=== PATIENT | female | born 1980 | race Caucasian/White ===

== ENCOUNTER → 2021-10-22 | Outpatient (CLI) | payer BC ==
[2021-10-22 14:58] LABS: Basophils # (A) 0.03 X 10*3/uL (0.00-0.10); Basophils % (A) 0.4 %; Eosinophils # (A) 0.11 X 10*3/uL (0.04-0.35); Eosinophils % (A) 1.6 %; HCT 39.2 % (37.2-46.3); HGB 12.6 g/dL (12.0-15.0); Immature Grans, Automated 0.6 %; Lymphocytes % (A) 27.9 %; MCH 29.1 pg (27.0-32.0); MCHC 32.1 g/dL (32.0-37.0); MCV 90.5 fL (80.0-97.0); Mean Platelet Volume 9.3 fL (9.5-12.2); Monocytes # (A) 0.38 X 10*3/uL (0.20-1.00); Monocytes % (A) 5.6 %; NRBC Per 100 WBC 0 /100 WBCS (0.0-0.0); Neutrophils # (A) 4.36 X 10*3/uL (1.80-7.70); Neutrophils % (A) 63.9 %; Platelet Count 336 X 10*3/uL (140-440); RBC 4.33 X 10*6/uL (4.10-5.20); RDW 12.2 % (11.5-14.5); WBC 6.82 X 10*3/uL (4.50-10.00)
== END | disposition home or self-care (01) ==
LOC: LABPAT 10-16 08:29
PROVIDERS: ATTEND Obstetrics & Gynecology
DX: Z01.812 Encounter for preprocedural laboratory examination (principal); N93.8 Other specified abnormal uterine and vaginal bleeding
CPT/HCPCS: 85025

== ENCOUNTER 2021-10-26 06:15 | Day surgery (SDC) | payer BC, OTHER ==
--- NOTE | 2021-10-22 11:40 | HP ---
HISTORY AND PHYSICAL REASON FOR ADMISSION: Surgery scheduled on 10/26/2021. HISTORY OF PRESENT ILLNESS: The patient is a 41-year-old 4, para 3, 0, 1, 3, who presents to the office complaining of longstanding irregular spotting and bleeding, which is unpredictable in nature and interruptive of her normal lifestyle. Her partner has a vasectomy and she is not interested in hormonal manipulation. She has specifically requested endometrial ablation as she is not in need of contraception and the pattern of bleeding is interruptive as noted above to her lifestyle. PAST MEDICAL HISTORY: Significant for history of headaches as well as irritable bowel syndrome. She additionally had depression on a single occasion. SURGICAL HISTORY: Significant for a section as well as a history of a laparoscopic cholecystectomy. She has had a colonoscopy on a regular basis, every 2 years, for quite some time. She additionally had a D and C for miscarriage and a right knee arthroscopy. There has been no history of any anesthetic concerns. OBSTETRICAL/SENIOR DEVOPS ENGINEER HISTORY: 4, para 3, 0, 1, 3 with 2 term vaginal deliveries preceded by a miscarriage and then followed by a term section. Method of contraception is vasectomy. Gynecologic history: Unremarkable with no history of any infections to include STDs. FAMILY HISTORY: Noncontributory. SOCIAL HISTORY: The patient is and is a nonsmoker. She has no other social concerns. CURRENT MEDICATIONS: Include Celexa 40 mg daily, magnesium supplement daily, and Prometrium 200 mg at bedtime. ALLERGIES: AMOXICILLIN, WHICH IS POTENTIALLY ANAPHYLACTIC. SHE ADDITIONALLY HAD A REACTION TO COMPAZINE, DHE AND ERYTHROMYCIN CAUSED HIVES. REVIEW OF SYSTEMS: Is confined to history of present illness. PHYSICAL EXAMINATION: Vital signs are stable. The patient is afebrile. In general, this is a well- developed, well-nourished white female in no acute distress. Her heart has a regular rhythm and rate without murmur. Her lungs are clear to auscultation bilaterally in all more. Her abdomen is nondistended, has normoactive bowel sounds, soft, nontender, and without any palpable masses, hepatosplenomegaly, or hernias. Her extremities are without any cyanosis, clubbing, or edema and are nontender to palpation bilaterally. Pelvic examination demonstrates normal external genitalia and BUS with normal vaginal mucosa and cervix. There is no cervical motion tenderness. Uterus is approximately 4- 5 weeks in size, mid plane, mobile, nontender, normal in shape. The adnexa are normal and nontender without mass bilaterally. ASSESSMENT AND PLAN: Dysfunctional uterine bleeding: We have discussed multiple different options and the patient has requested a diagnostic hysteroscopy with NovaSure endometrial ablation. Endometrial biopsy was negative or normal. The risks and complications of the procedure were thoroughly discussed including the risks for bleeding, bleeding requiring transfusion, infection, injury to local structures, to specifically include uterine perforation, Asherman syndrome, or potential hematometra. She has understood all this and has agreed to proceed. We are scheduled for surgery on the morning of October 26, 2021. MMODL / IJN: [id number] /
[~2021-10-26 06:15] MED LIST: Pre Op ABX Message 1 EACH MISC MISCELLANE ONE
[2021-10-26] MEDS ORDERED: DEXAMETHASONE SOD PHOSPHATE 4 MG/ML 1 ML VIAL IV ONE (06:24)
[2021-10-26] MEDS ORDERED: MIDAZOLAM 2 MG/2 ML VIAL IV PRN (06:24)
[2021-10-26] MEDS ORDERED: LACTATED RINGERS 1,000 ML IV SCH ×2 (06:24→08:00)
[2021-10-26] MEDS ORDERED: SCOPOLAMINE 1 MG/72 HR PATCH TRANSDERM ONE (06:24)
[2021-10-26] MEDS ORDERED: ONDANSETRON 4 MG/2 ML VIAL IVP ONE (06:24)
[2021-10-26] MEDS ORDERED: HYDROmorphone 0.5 MG/0.5 ML SYRINGE IVP PRN (07:00)
[2021-10-26] MEDS ORDERED: KETOROLAC 15 MG/ML 1 ML VIAL ONE (07:26)
[2021-10-26] MEDS ORDERED: MIDAZOLAM 2 MG/2 ML VIAL ONE (07:26)
[2021-10-26] MEDS ORDERED: PROPOFOL 10 MG/ML 20 ML VIAL IV ONE (07:26)
[2021-10-26] MEDS ORDERED: LIDOCAINE 2% INJ 20 MG/ML (2 ML VIAL) ONE (07:26)
[2021-10-26] MEDS ORDERED: fentaNYL (PF) 50 MCG/ML 2 ML AMP ONE (07:26)
[2021-10-26] MEDS ORDERED: diphenhydrAMINE 50 MG/ML 1 ML VIAL IVP PRN (07:58)
[2021-10-26] MEDS ORDERED: ONDANSETRON 4 MG/2 ML VIAL IVP PRN (07:58)
[2021-10-26] MEDS ORDERED: METOCLOPRAMIDE 5 MG/ML 2 ML VIAL IVP PRN (07:58)
[2021-10-26] MEDS ORDERED: Acetaminophen-Codeine 300-30mg TAB PO PRN ×2 (07:58)
[2021-10-26] MEDS ORDERED: KETOROLAC 15 MG/ML 1 ML VIAL IVP PRN (07:58)
[2021-10-26] MEDS ORDERED: SIMETHICONE 80 MG CHEWABLE PO PRN (07:58)
[2021-10-26] MEDS ORDERED: IBUPROFEN 600 MG TAB PO PRN (07:58)
--- NOTE | 2021-10-26 08:03 | P.OP ---
Date of Procedure: 10/26/21 Preoperative Diagnosis: #1. Dysfunctional uterine bleeding Postoperative Diagnosis: Same Procedure(s) Performed: #1. Diagnostic hysteroscopy #2. NovaSure endometrial ablation Anesthesia: other (Gen. by LMA) Surgeon: Amandeep Claudio Estimated Blood Loss (ml): 5 IV fluids (ml): 500 Urine output (ml): 20 Pathology: none sent Condition: stable Disposition: PACU Operative Findings: Gravid pelvic examination demonstrated a 4-5 week retroverted mobile normal shaped uterus with normal adnexa bilaterally. Intraoperatively, the cervix was approximately 3 and half centimeters in length while the uterus measured 9 cm in length. The hysteroscope demonstrated no evidence of any pathology and the bilateral tubal ostia were seen. The settings for the NovaSure tool where a length of 5.5 cm, a width of 4.7 cm for total power 142 W. After a total run time of 32 seconds, the base unit read "procedure complete." The postprocedural result appeared excellent. The patient is a candidate for vaginal hysterectomy should it become necessary in the future. Description of Procedure: The patient was prepped and draped in usual fashion after general anesthesia was administered by the anesthesiologist. A weighted speculum was placed and the bladder drained of approximately 20 mL of clear lucero urine. The anterior lip of the cervix was grasped with a single-tooth tenaculum and uterus sounded with cervical length of 3.5 cm and uterine length of 9 cm. Serial dilation was carried out to admit the diagnostic hysteroscope which was placed. The cavity was distended with normal saline and the findings were entirely normal as noted above. After completing hysteroscopy, the scope was set aside and the NovaSure tool introduced into the uterine cavity, opened, and seated well. The settings were as above with a length of 5.5 cm, a width of 4.7 cm for total power of 142 W. The cavity check was attempted and passed without difficulty and the tool was enabled. The run was started and after a run time of 32 seconds, the base unit read "procedure complete." The 2 was closed, removed, and discarded and the diagnostic scope replaced. The result appeared to be excellent as noted above. All instrumentation was removed and one point of bleeding from one of the tenaculum sites was made hemostatic with pressure. Estimated blood loss for the case was less than 5 mL. There were no complications. All sponge, instrument, needle counts were correct. The patient is a candidate for vaginal hysterectomy in the future should it become necessary that she does carry a history of one previous section. The patient tolerated the procedure well and proceeded to the recovery room in stable condition.
[2021-10-26 08:26] VITALS: TEMP 97.6
[2021-10-26] MEDS ORDERED: LACTATED RINGERS 1,000 ML IV ONE (08:40)
[2021-10-26] MEDS: LACTATED RINGERS 1,000 ML IV ONE (08:40)
[2021-10-26 09:21] VITALS: BP 123/83; PULSE 71; RESP 18
== END 2021-10-26 09:41 | disposition home or self-care (01) ==
LOC: OR 06:15
PROVIDERS: ATTEND Obstetrics & Gynecology
DX: N93.8 Other specified abnormal uterine and vaginal bleeding (principal); K58.9 Irritable bowel syndrome, unspecified; K21.9 Gastro-esophageal reflux disease without esophagitis; Z90.49 Acquired absence of other specified parts of digestive tract; Z79.899 Other long term (current) drug therapy; Z88.0 Allergy status to penicillin; Z88.8 Allergy status to other drugs, medicaments and biological substances
CPT/HCPCS: 81025; 58563; J2250; J1100; J2405; J3010; J1885; J2704; J2001